=== PATIENT | female | born 1960 | race African-American/Black ===

== ENCOUNTER 2019-05-15 09:43 | Emergency (ER) | payer OTHER ==
[~2019-05-15] VITALS: Ht 165.1 cm; Wt 72.0 kg
[2019-05-15 11:06] VITALS: BP 128/76
== END 2019-05-15 11:07 | disposition home or self-care (01) ==
LOC: ER 09:43
DX: G89.29 Other chronic pain (principal); M54.5 Low back pain; M19.90 Unspecified osteoarthritis, unspecified site; F17.210 Nicotine dependence, cigarettes, uncomplicated; Z98.1 Arthrodesis status
CPT/HCPCS: 99282

== ENCOUNTER 2023-04-11 13:36 | Emergency (ER) | payer OTHER ==
[~2023-04-11] VITALS: Ht 165.1 cm; Wt 86.0 kg
[2023-04-11 13:42] VITALS: BP 150/81; PULSE 98; RESP 19; TEMP 98.3; O2SAT 98
[2023-04-11] MEDS ORDERED: KETOROLAC 60MG/2ML VIAL IM ONE (17:15)
[2023-04-11] MEDS ORDERED: METH-773 MT (18:15)
[2023-04-11] MEDS ORDERED: IBUP-2029 MT (18:15)
[2023-04-12] MEDS ORDERED: CYCL10TA21 MT (01:56)
[2023-04-12] MEDS ORDERED: NAPR-681 MT (01:56)
== END 2023-04-11 19:25 | disposition home or self-care (01) ==
LOC: ER 13:45
DX: G89.29 Other chronic pain (principal); M54.50 Low back pain, unspecified; M25.561 Pain in right knee; M25.562 Pain in left knee
CPT/HCPCS: 99283; 73562; 96372; J1885

== ENCOUNTER 2023-04-11 23:52 | Emergency (ER) | payer OTHER ==
[~2023-04-11] VITALS: Ht 167.6 cm; Wt 81.0 kg
[~2023-04-11 23:52] MED LIST: IBUP-2029 MT; METH-773 MT
[2023-04-12 00:04] VITALS: BP 133/82; PULSE 82; RESP 18; TEMP 98.3; O2SAT 98
[2023-04-12] MEDS ORDERED: KETOROLAC 15MG/ML VIAL IM ONE (01:15)
[2023-04-12] MEDS ORDERED: CYCLOBENZAPRINE 10MG TABLET PO ONE (01:15)
[2023-04-12] MEDS ORDERED: CYCL10TA21 MT (01:56)
[2023-04-12] MEDS ORDERED: NAPR-681 MT (01:56)
== END 2023-04-12 02:20 | disposition home or self-care (01) ==
LOC: ER 23:52
DX: M54.50 Low back pain, unspecified (principal); I95.9 Hypotension, unspecified
CPT/HCPCS: 99283; 96372; J1885; Z7610 ×2